=== PATIENT | male | born 1985 | race African-American/Black ===

== ENCOUNTER 2018-03-17 13:38 | Inpatient (IN) | payer OTHER ==
[~2018-03-17] VITALS: Ht 187.9 cm; Wt 90.7 kg
--- NOTE | ~2018-03-17 | CON ---
[place], [place] REPORT OF CONSULTATION NAME: PIOTR MOSER UNIT #: [id number] ROOM: [facility] DOCTOR: GEMINI KENNEDY MD,MARSHALL BIRTHDATE: [birth year] DOS: 03/19/2018 The patient was asked for consultation, but transferred to another facility prior to the assessment. MARSHALL SINGLETARY MD CM:CONSTR:REPORT OF CONSULTATION [id number] 03/20/18 1416 interface
[2018-03-17 13:41] VITALS: BP 161/111
[2018-03-17] MEDS ORDERED: ATIVAN0.5 MG PO (13:42)
[2018-03-17 14:32] LABS: BASO # 0.1 10*3/uL (0.0-0.1); BASO % 0.8 % (0.0-1.0); EOS # 0.2 10*3/uL (0.0-0.4); EOS % 2.7 % (1.0-4.0); HEMATOCRIT 45.1 % (42.0-52.0); HEMOGLOBIN 15.3 g/dl (14.0-18.0); LYMPH # 3.2 10*3/uL (1.3-4.4); MEAN CELL VOLUME 90.9 fl (80.0-94.0); MEAN CORPUSCULAR HGB 30.8 pg (27.0-31.0); MEAN CORPUSCULAR HGB CONC 33.9 g/dl (33.0-37.0); MEAN PLATELET VOLUME 10.7 fl (9.6-12.3); MONO # 0.7 10*3/uL (0.1-1.0); MONO % 9.5 % (3.0-9.0); NEUT # 3.5 10*3/uL (2.3-7.9); NEUT % 45.7 % (47.0-73.0); PLATELET COUNT AUTOMATED 152 10*3/uL (130-400); RED BLOOD COUNT 4.96 10*6/uL (4.50-5.90); RED CELL DISTRI WIDTH 13.6 % (0-14.5); WHITE BLOOD COUNT 7.7 10*3/uL (4.8-10.8)
[2018-03-17 14:46] LABS: ALBUMIN 3.8 gm/dl (3.1-4.5); ALKALINE PHOSPHATASE 47 U/L (45-117); BUN 8 mg/dl (7-24); CHLORIDE 105 mmol/L (98-107); CREATININE 0.82 mg/dL (0.70-1.30); POTASSIUM 3.9 mmol/L (3.5-5.1); SGOT/AST 52 IU/L (3-35); SGPT/ALT 43 U/L (12-78); SODIUM 139 mmol/L (136-145); TOTAL PROTEIN 7.9 gm/dL (6.4-8.2)
[2018-03-17 14:46] LABS: URINE AMPHETAMINES < 1000 (1000ng/ml); URINE BARBITURATES < 200 (200ng/ml); URINE BENZODIAZEPINES < 200 (200ng/ml); URINE CANNABINOIDS (THC) > 50 (50ng/ml); URINE COCAINE < 300 (300ng/ml); URINE METHADONE < 300 (300ng/ml); URINE OPIATES < 300 (300ng/ml); URINE PHENCYCLIDINE < 25 (25ng/ml)
[2018-03-17 14:47] LABS: ACETAMINOPHEN (TYLENOL) < 2.0 ug/ml (10-30)
[2018-03-17 14:52] VITALS: BP 151/72
[2018-03-17 14:56] LABS: BILIRUBIN NEGATIVE (NEGATIVE); BLOOD NEGATIVE (NEGATIVE); CLARITY CLEAR (CLEAR); COLOR YELLOW (YELLOW); GLUCOSE NEGATIVE (NEGATIVE); KETONE NEGATIVE (NEGATIVE); LEUKO ESTERASE NEGATIVE (NEGATIVE); NITRITE NEGATIVE (NEGATIVE); SPECIFIC GRAVITY <= 1.005 (1.005-1.030); UROBILINOGEN 0.2 E.U./dl (0.2-1.0)
[2018-03-17 15:36] LABS: BACTERIA TRACE; EPITHELIAL CELLS 0-2; RBC 0-2 rbc/hpf (0-2); WBC 0-2 wbc/hpf (0-5)
[2018-03-17 15:59] LABS: INTERNATIONAL NORM RATIO 0.9 (2.0-3.5)
[2018-03-17 16:10] VITALS: BP 163/118
[2018-03-17 16:48] VITALS: BP 162/90
[2018-03-17] MEDS ORDERED: BUSPIRONE10 MG PO (17:09)
[2018-03-17] MEDS ORDERED: HYDR25T PO (17:09)
[2018-03-17] MEDS ORDERED: KEPPRA500 MG PO (17:10)
[2018-03-17] MEDS ORDERED: VITAMIN D50000 UNIT PO (17:10)
[2018-03-17 20:00] VITALS: BP 166/90
[2018-03-18] VITALS (10 sets, daily range): BP systolic 116–190; BP diastolic 64–111
[2018-03-18 17:04] LABS: BASO # 0.1 10*3/uL (0.0-0.1); BASO % 1.3 % (0.0-1.0); EOS # 0.1 10*3/uL (0.0-0.4); EOS % 2.3 % (1.0-4.0); HEMATOCRIT 43.7 % (42.0-52.0); LYMPH # 1.8 10*3/uL (1.3-4.4); LYMPH % 33.6 % (27.0-41.0); MEAN CELL VOLUME 90.5 fl (80.0-94.0); MEAN CORPUSCULAR HGB 31.1 pg (27.0-31.0); MEAN CORPUSCULAR HGB CONC 34.3 g/dl (33.0-37.0); MEAN PLATELET VOLUME 10.8 fl (9.6-12.3); MONO # 0.7 10*3/uL (0.1-1.0); MONO % 12.8 % (3.0-9.0); NEUT # 2.6 10*3/uL (2.3-7.9); NEUT % 49.8 % (47.0-73.0); PLATELET COUNT AUTOMATED 149 10*3/uL (130-400); RED BLOOD COUNT 4.83 10*6/uL (4.50-5.90); RED CELL DISTRI WIDTH 13.6 % (0-14.5); WHITE BLOOD COUNT 5.2 10*3/uL (4.8-10.8)
[2018-03-18 17:21] LABS: BUN 14 mg/dl (7-24); CHLORIDE 105 mmol/L (98-107); CREATININE 0.98 mg/dL (0.70-1.30); PHOSPHOROUS 3.3 mg/dL (2.5-4.9); POTASSIUM 4.1 mmol/L (3.5-5.1); SODIUM 140 mmol/L (136-145)
[2018-03-18 17:30] LABS: TROPONIN I < 0.015 ng/ml (<0.045)
[2018-03-18] MEDS ORDERED: Vitamin D PO (20:28)
[2018-03-18] MEDS ORDERED: HYDR25T PO (20:28)
== END 2018-03-18 22:30 | disposition short-term general hospital (02) | DRG 101 ==
LOC: ED 13:38 → EDBD 15:33 → 5E 15:33 → EDHOLD 15:33 → 5E 16:03 → ICCU 03-18 16:28
PROVIDERS: Internal Medicine; Nurse Practitioner Family
PROC: 0BH17EZ Insertion of Endotracheal Airway into Trachea, Via Natural or Artificial Opening (ICD-10-PCS; principal; 2018-03-18)
PROC: 5A1935Z Respiratory Ventilation, Less than 24 Consecutive Hours (ICD-10-PCS; 2018-03-18)
DX: G40.909 Epilepsy, unspecified, not intractable, without status epilepticus (principal); F10.121 Alcohol abuse with intoxication delirium; F12.10 Cannabis abuse, uncomplicated; F32.9 Major depressive disorder, single episode, unspecified; I10 Essential (primary) hypertension; R74.0 Nonspecific elevation of levels of transaminase and lactic acid dehydrogenase [LDH]; F41.9 Anxiety disorder, unspecified; F41.0 Panic disorder [episodic paroxysmal anxiety]; Z72.0 Tobacco use; Z71.6 Tobacco abuse counseling; Z82.49 Family history of ischemic heart disease and other diseases of the circulatory system; Z79.899 Other long term (current) drug therapy